=== PATIENT | male | born 1990 | race Caucasian/White ===

== ENCOUNTER 2018-06-29 18:31 | Emergency (ER) | payer MEDICAID ==
[~2018-06-29] VITALS: Ht 172.7 cm; Wt 70.5 kg
[2018-06-29 20:01] LABS: INFLUENZA TYPE A NEGATIVE FOR TYPE A (NEGATIVE); INFLUENZA TYPE B NEGATIVE FOR TYPE B (NEGATIVE)
[2018-06-29 20:32] VITALS: BP 123/83
== END 2018-06-29 20:37 | disposition home or self-care (01) ==
LOC: EMS 18:33
DX: R11.2 Nausea with vomiting, unspecified (principal); Z13.89 Encounter for screening for other disorder
CPT/HCPCS: 87804